=== PATIENT | male | born 1985 | race Caucasian/White ===

== ENCOUNTER 2024-01-15 06:05 | Day surgery (SDC) | payer BC, SELFPAY ==
[2024-01-15 05:58] VITALS: BMI 30.9
[2024-01-15 06:07] VITALS: BP 134/85; BMI 30.9
[2024-01-15 08:15] VITALS: BP 105/61
[2024-01-15 08:30] VITALS: BP 108/78
[2024-01-15 08:45] VITALS: BP 130/81
== END 2024-01-15 09:00 | disposition home or self-care (01) ==
LOC: SDS 06:05
PROVIDERS: ATTENDING PHYSICIAN Specialist
DX: Z30.2 Encounter for sterilization (principal)
CPT/HCPCS: 55250; 88302